=== PATIENT | male | born 1975 | race Caucasian/White ===

== ENCOUNTER 2017-03-05 10:44 | Emergency (ER) | payer MEDICAID, OTHER ==
[~2017-03-05] VITALS: Ht 172.7 cm; Wt 80.0 kg
[2017-03-05 11:04] VITALS: BP 133/82
== END 2017-03-05 11:44 | disposition home or self-care (01) ==
LOC: ER 10:59
DX: F11.10 Opioid abuse, uncomplicated (principal); F10.10 Alcohol abuse, uncomplicated; I10 Essential (primary) hypertension; Z88.0 Allergy status to penicillin
CPT/HCPCS: 82962; 99283

== ENCOUNTER 2019-04-02 12:16 | Emergency (ER) | payer MEDICAID, OTHER ==
[~2019-04-02] VITALS: Ht 175.3 cm; Wt 100.0 kg
[2019-04-02] MEDS ORDERED: SODIUM CHLORIDE 0.9% 1,000 ML IV ONE (12:36)
[2019-04-02] MEDS ORDERED: LEVETIRACETAM 500MG PREMIX 100 ML IV ONE (12:45)
[2019-04-02 13:33] LABS: BASOPHILS % 0.7 % (0.0-2.0); EOSINOPHILS % 3.6 % (0.0-5.0); HEMATOCRIT. 43.4 % (42.0-52.0); HEMOGLOBIN. 15.2 g/dL (14.0-18.0); LYMPHOCYTES % 17.7 % (20.0-50.0); MEAN CORPUSCULAR HEMOGLOBIN 30.8 pg (28.0-32.0); MEAN CORPUSCULAR VOLUME 87.8 fL (80.0-94.0); MEAN PLATELET VOLUME 6.7 fl (7.4-10.4); MONOCYTES % 5.5 % (2.0-8.0); NEUTROPHILS % 72.5 % (40.0-76.0); PLATELET 294 x1000/uL (130-400); RED BLOOD CELL COUNT 4.94 mill/uL (4.7-6.1); RED CELL DISTRIBUTION WIDTH 13.2 % (11.6-14.6)
[2019-04-02 13:37] LABS: CHLORIDE 105 mEq/L (98-107)
[2019-04-02 15:32] VITALS: BP 128/69
== END 2019-04-02 15:57 | disposition home or self-care (01) ==
LOC: ER 12:16
DX: G40.909 Epilepsy, unspecified, not intractable, without status epilepticus (principal); I10 Essential (primary) hypertension; G81.91 Hemiplegia, unspecified affecting right dominant side; F11.10 Opioid abuse, uncomplicated
CPT/HCPCS: 36415; 70450; 80053; 85025; 93005; 96365; 99284; J1953; J7030